=== PATIENT | female | born 1980 | race Caucasian/White ===

== ENCOUNTER 2018-06-01 17:46 | Inpatient (IN) | payer OTHER, SELFPAY ==
[2018-06-01 18:17] VITALS: BMI 29.8
[2018-06-01] MEDS ORDERED: Ibuprofen 800 MG TAB PO PRN (18:31)
[2018-06-01] MEDS ORDERED: Carboprost 250 MCG/ML AMP IM PRN (18:31)
[2018-06-01] MEDS ORDERED: NS / Oxytocin 40 units/1000ml 1,000 ML IV PRN (18:31)
[2018-06-01] MEDS ORDERED: Lactated Ringer's 1,000 ML IV PRN (18:31)
[2018-06-01] MEDS ORDERED: Butorphanol Tartrate 1 MG/ML VIAL SLOW IVP PRN (18:31)
[2018-06-01] MEDS ORDERED: Methylergonovine 0.2 MG/ML VIAL IM PRN (18:31)
[2018-06-01] MEDS ORDERED: Promethazine HCl 25 MG/ML VIAL IM PRN ×2 (18:31→22:53)
[2018-06-01] MEDS ORDERED: Lidocaine 1% (PF) 30 ML VIAL SC PRN (18:31)
[2018-06-01] MEDS ORDERED: Misoprostol 200 MCG TAB PR PRN (18:31)
[2018-06-01] MEDS ORDERED: HYDROcodone/Acetaminophen 5/325 mg Tablet PO PRN ×2 (18:31)
[2018-06-01] MEDS ORDERED: Ondansetron HCl/PF 4 MG/2 ML Vial IVP PRN ×2 (18:31→22:53)
--- NOTE | 2018-06-01 18:39 | PDOC.LDHP ---
Labor and Delivery H&P Chief complaint: contractions HPI: started raeann at 0400 this am. She is feeling baby move and denies having LOF. she is having bleeding that is like a light period and mixed with mucus. Current gestational age (weeks): 40 Due date: 05/27/18 Dating criteria: last menstrual period Grav: 3 Para: 2 OB History Details: G1 7#7oz 11/01/2011, epidural G2 7# 7oz on 07/17/09, none G3 current Current complications: other (tachycardia - has seen cardiology AMA) Abnormal US findings: No Past Medical History: spinal surgery hip surgery blood transfusion during surgery. Current medications: pre-dennis vitamins Previous surgical history: other Allergies/Adverse Reactions: Allergies Allergy/AdvReac Type Severity Reaction Status Date / Time meperidine [From Demerol] Allergy Rash Verified 06/01/18 18:18 Social history: none - Physical Exam Vital signs reviewed and normal: yes General: breathing through contractions Heart: RRR Lungs: nonlabored breathing Abdomen: gravid Extremeties: trace edema FHT: category 1 - Vaginal Exam cm dilated: 3 Effacement: 90% Station: -1 - OB Labs Blood type: O RH: positive Antibody Screen: negative HIV: negative RPR: negative HEPSAg: negative 1 hour GCT: negative GBS: negative Urine drug screen: negative Rubella: immune - Assessment L&D Assessment: term patient in labor - Plan Plan: admit to L&D -: anticipate
[2018-06-01 20:23] LABS: Hemoglobin 13.4 g/dL (12.0-16.0); Mean Corpuscular HGB CONC 34.7 g/dL (32.0-36.0); Mean Corpuscular Hemoglobin 32.3 pg (27.0-31.0); Mean Corpuscular Volume 92.9 fL (78.0-98.0); Mean Platelet Volume 7.1 fL (7.4-10.4); Platelet Count 178 thou/uL (130-400); Red Blood Cell (RBC) Count 4.16 mill/uL (4.20-5.40); White Blood Cell (WBC) Count 9.5 thou/uL (4.8-10.8)
[2018-06-01 21:02] LABS: Syphilis Antibody Nonreactive (Nonreactive); Syphilis Antibody Index 0.03 S/CO (<1.00 Non-Reactive)
[2018-06-01] MEDS ORDERED: Bupivacaine 0.75% 13.4 ML, fentaNYL Citrate/PF 400 MCG in Sodium Chloride 0.9% 78.6 ML EPIDURAL SCH (22:00)
[2018-06-01] MEDS ORDERED: DISCONTINUE ALL PREVIOUS NARCOTICS FS SCH (22:00)
[2018-06-01 22:50] LABS: HBSAg Index 0.18 S/CO (0-0.99); Hep B Surf Ag Non-Reactive S/CO (NonReactive)
[2018-06-01] MEDS ORDERED: Eucerin (Mineral Oil/Petrolatum,White) 30 gm Jar TOP PRN (22:53)
[2018-06-01] MEDS ORDERED: diphenhydrAMINE 50 MG/ML VIAL IVP PRN (22:53)
[2018-06-01] MEDS ORDERED: Acetaminophen 325 MG TAB PO PRN (22:53)
[2018-06-01] MEDS ORDERED: Lactated Ringer's 500 ML IV PRN (22:53)
[2018-06-01] MEDS ORDERED: Naloxone HCl 0.4 mg/ml Vial IVP PRN ×2 (22:53)
[2018-06-01] MEDS ORDERED: ePHEDrine/0.9% NaCl/PF SYRINGE 50 mg/10 ml SLOW IVP PRN (22:53)
[2018-06-01] MEDS ORDERED: Communication Order-Pharmacy FS SCH (23:00)
[2018-06-01] MEDS ORDERED: fentaNYL Citrate/PF 400 MCG, Bupivacaine 0.5% 20 ML in Sodium Chloride 0.9% 72 ML EPIDURAL SCH (23:00)
[2018-06-02] MEDS ORDERED: Lidocaine 2% MPF 10 ML AMP (For Epidural Use) ONE (01:00)
[2018-06-02] MEDS ORDERED: ePHEDrine/0.9% NaCl/PF SYRINGE 50 mg/10 ml ONE (01:00)
[2018-06-02] MEDS ORDERED: Acetaminophen/Codeine 30-300mg Tablet PO PRN ×4 (01:08→03:17)
--- NOTE | 2018-06-02 01:12 | PDOC.OPDEL ---
OB Operative/Delivery Note Delivery Dr/Surgeon: SABINA pitts Pre-Delivery Diagnosis: active labor Procedure/Post Delivery Dx: operative vaginal delivery Weeks gestation: 40 Anesthesia: epidural - Findings A Sex: male Weight: 9 lb 3 oz - 1 min: 8 - 5 min: 8 - Additional Findings/Plan Placenta delivered: spontaneous (with trailing membranes removed with ring forceps) Repaired Obstetrical Laceration: 2nd degree findings: other Estimated blood loss: 210 quantitative Compilations/Other Findings: to NICU for low O2 saturation. Post delivery plan: routine recovery
[2018-06-02] MEDS ORDERED: Measles/Mumps/Rubella 10 MCG/0.5 ML VIAL SC ONE (03:17)
[2018-06-02] MEDS ORDERED: Bisacodyl 10 MG SUPP PR PRN (03:17)
[2018-06-02] MEDS ORDERED: NS / Oxytocin 40 units/1000ml 1,000 ML IV SCH (03:17)
[2018-06-02] MEDS ORDERED: Varicella virus, LIVE 0.5 ML VIAL SC ONE (03:17)
[2018-06-02] MEDS ORDERED: diphenhydrAMINE 25 MG CAP PO PRN (03:17)
[2018-06-02] MEDS ORDERED: Misoprostol 200 MCG TAB VAG PRN (03:17)
[2018-06-02] MEDS ORDERED: Adacel (T-DAP) 0.5 ML VIAL IM ONE (03:17)
[2018-06-02] MEDS ORDERED: Methylergonovine 0.2 MG/ML VIAL IM PRN (03:17)
[2018-06-02] MEDS ORDERED: Ondansetron HCl/PF 4 MG/2 ML Vial IVP PRN (03:17)
[2018-06-02] MEDS ORDERED: Milk Of Magnesia 30 ML UDCUP PO PRN (03:17)
[2018-06-02] MEDS ORDERED: Benzocaine/Menthol 20-0.5% 60 ML CAN TOP PRN (03:17)
[2018-06-02 06:05] LABS: Hemoglobin 11.1 g/dL (12.0-16.0); Mean Corpuscular HGB CONC 34.8 g/dL (32.0-36.0); Mean Corpuscular Hemoglobin 32.4 pg (27.0-31.0); Mean Corpuscular Volume 93.1 fL (78.0-98.0); Mean Platelet Volume 7.7 fL (7.4-10.4); Platelet Count 166 thou/uL (130-400); RBC Distribution Width 12.9 % (11.5-14.5); Red Blood Cell (RBC) Count 3.42 mill/uL (4.20-5.40); White Blood Cell (WBC) Count 13.4 thou/uL (4.8-10.8)
[2018-06-02] MEDS: Docusate Calcium (SURFAK) 240 MG CAP PO SCH ×2 (09:23→19:49)
[2018-06-02] MEDS: Ibuprofen 800 MG TAB PO SCH ×3 (09:24→19:49)
[2018-06-02] MEDS: Ferrous Sulfate 325 MG TAB PO SCH ×2 (09:24→17:36)
[2018-06-02] MEDS: Prenatal Vitamin 1 TAB PO SCH (09:25)
--- NOTE | 2018-06-02 11:45 | PDOC.PP ---
Post Progress Note Post Day #: 0 to 1 (patient has note in chart) Subjective: Mild headache, otherwise well...12 hours PO intake tolerated: yes Flatus: yes Ambulation: yes Vital Signs (12 hours) Temp Pulse Resp BP BP Pulse Ox 06/02/18 08:00 97.5 F L 70 16 06/02/18 07:20 97.5 F L 70 16 117/67 96 06/02/18 04:00 97.9 F 83 16 115/58 L 06/02/18 03:10 98.5 F 91 16 Weight Weight 185 lb - Physical Examination General: NAD Cardiovascular: no m/r/g Abdominal: + bowel sounds, no distention, appropriately TTP Extremities: negative homans (B) Psychiatric: A&Ox3, normal affect Result Diagrams: 06/02/18 05:01 Additional Labs: Post Labs Blood Type O POSITIVE 06/01/18 19:18 Hep Bs Antigen Non-Reactive S/CO (NonReactive) 06/01/18 19:18 (1) Vaginal delivery Code(s): O80 - ENCOUNTER FOR FULL-TERM UNCOMPLICATED DELIVERY Status: Acute - Assessment/Plan Assessment: day 12 hours Plan: 1. Follow headache...maybe fatigue vs epidural related. Anesthesia to assess if not better 2. Follow for now in house 3. Light to resume care tomorrow
[2018-06-03] MEDS: Ibuprofen 800 MG TAB PO SCH ×2 (05:48→14:10)
[2018-06-03] MEDS: Ferrous Sulfate 325 MG TAB PO SCH (08:37)
[2018-06-03 08:38] VITALS: BP 107/65; TEMP 98.5
[2018-06-03] MEDS: Prenatal Vitamin 1 TAB PO SCH (08:50)
[2018-06-03] MEDS: Docusate Calcium (SURFAK) 240 MG CAP PO SCH (08:51)
== END 2018-06-03 15:25 | disposition home or self-care (01) | DRG 775 ==
LOC: L&D/OP 17:46 → L&D 18:36 → 3SW 06-02 03:07
PROVIDERS: ADMIT Obstetrics & Gynecology; ATTEND Obstetrics & Gynecology
PROC: 10D07Z3 Extraction of Products of Conception, Low Forceps, Via Natural or Artificial Opening (ICD-10-PCS; principal; 2018-06-01)
PROC: 0KQM0ZZ Repair Perineum Muscle, Open Approach (ICD-10-PCS; 2018-06-01)
DX: O70.1 Second degree perineal laceration during delivery (principal); Z37.0 Single live birth; Z3A.40 40 weeks gestation of pregnancy; O48.0 Post-term pregnancy
CPT/HCPCS: 36415; 85027; 86780; 86850; 86900; 86901; 87340; 99285; J2001; J3010; J7050